=== PATIENT | male | born 1940 | race Caucasian/White ===

== ENCOUNTER 2020-04-27 08:18 | Emergency (ER) | payer OTHER, SELFPAY ==
[2020-04-27 08:30] VITALS: BP 146/80; PULSE 111; RESP 18; TEMP 37.6; O2SAT 94; BMI 34.9
--- NOTE | 2020-04-27 08:37 | XR_ITS ---
WS: [id number] Portable AP upright chest, 04/27/2020 Clinical Data: syncope Comparison: None. Findings: No nodules, masses or effusions are seen. The heart is normal. The pulmonary vascularity is not increased. No pneumonia or pneumothorax is seen. XR/XR chest 1V portable [id number] Impression: Negative chest.
--- NOTE | 2020-04-27 08:38 | CT_ITS ---
WS: [id number] CT HEAD TECHNIQUE: Noncontrast CT of the head obtained from the skullbase to the vertex. CLINICAL INFORMATION: fall with laceration, + use of ASA COMPARISON: None. DLP: 1683.[address] scans at [facility] use at least one of these dose optimization techniques: automat ed exposure control; mA and/or kV adjustment per patient size (includes targeted exams where dose is matched to clinical indication); or iterative reconstruction. FINDINGS: No evidence of intracranial hemorrhage or mass effect. Ventricular system and basal cisterns are ríos nt. Mild small vessel changes with mild parenchymal volume loss. No extra-axial fluid collections. No evidence of mass or mass effect. Normal gomez-white differentiation. Mild mucosal thickening paranasal sinuses. Mastoid air cells well aerated. CT/CT head wo con* [id number] IMPRESSION: 1. No evidence of intracranial hemorrhage or mass effect. 2. Mild small vessel changes. Mild parenchymal volume loss. 3. Mild mucosal thickening in the paranasal sinuses. Mastoid air cells are wel l aerated. 4. No acute intracranial findings.
--- NOTE | 2020-04-27 08:40 | ECG_ITS ---
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 Measurements Intervals [place] Rate: 100 P: -1 IA: 176 QRS: -58 QRSD: 146 T: 26 QT: 350 QTc: 452 Interpretive Statements SINUS TACHYCARDIA LEFT AXIS DEVIATION [QRS AXIS < -30] INTRAVENTRICULAR CONDUCTION DELAY [130+ ms QRS DURATION] No previous ECG available for comparison Electronically Signed On 04-27-2020 17:33:16 CDT by Ahsan Ragland M.D. [email or web address]/NU/[id number] f
--- NOTE | 2020-04-27 08:42 | W.ED.FALL ---
HPI - Fall General: Chief Complaint: Fall Stated Complaint: FALL, HEAD LACERATION Time Seen by Provider: 04/27/20 08:25 History of Present Illness: HPI Narrative: 79-year-old male presents to the emergency department with head injury status post syncope. He reports previous syncopal episodes x2 years with work-up by his primary care provider. Reports felt dizzy and fell upon awakening out of bed. He drove himself to the emergency department. He is also complaining of 3-day history of increased shortness of breath. He reports concern he may have, COVID . He denies exposure. Reports 2-day onset of increased temperature of 99.2-99.7. History of CAD, first [place] 1980. He denies chest pain. Reports did not take insulin or oral medications this morning. MD complaint: fall Onset (ago): hour(s) (1) Fall from: standing and from height (distance) Fall witnessed: no Place fall occurred: home Loss of consciousness: Yes Length of LOC: second(s) (Unknown, patient reports, not long ) Prolonged down time: unclear Symptoms prior to fall: lightheadedness and dizziness Location of injury: head Location of injury - extremities: Left: elbow and knee Associated symptoms-after fall: Denies abdominal pain, chest pain or headache(s) Review of Systems General: Reports: 10 or more systems reviewed and unremarkable except in HPI and below Const: Reports: fever(s); Denies: chills, change in appetite or diaphoresis Eyes: Denies: blurry vision or eye redness ENMT: Denies: throat pain, dental pain or disequilibrium Card: Denies: chest pain, palpitations or irregular heart rhythm Resp: Reports: dyspnea and wheezing; Denies: productive cough, non-productive cough, pain on inspiration, hemoptysis or chest congestion GI: Denies: abdominal pain, nausea or vomiting : Denies: dysuria Musc: Denies: back pain Skin/Breast: Denies: rash or pruritus Neuro: Denies: headache(s), weakness in extremities or behavioral changes Souleymane/Lymph: Denies: easy bruising Physical Exam Const: COMMON NORMALS: patient oriented x3, healthy appearing, alert and well nourished GENERAL APPEARANCE: cooperative, comfortable, well kempt and well hydrated ORIENTATION/CONSCIOUSNESS: Yes awake, Yes oriented to person, Yes oriented to place and Yes oriented to time HENMT: COMMON NORMALS: Normal external nose present and moist oral mucous membranes HEAD & SCALP: laceration (frontal 3 cm linear, vertical) FACE & SINUS: sinuses nontender and face symmetric NOSE: Normal external nose present GENERAL EAR: hearing grossly impaired Laterality: bilateral (use of hearing aids) MOUTH: Normal oral and palatal mucosa present Eye: COMMON NORMALS: Equal, round and reactive pupils present and EOMs intact bilaterally GENERAL EYE: appearance normal, both eyes and all related structures EYELID: eyelids normal PUPIL: Yes Equal, round and reactive pupils present, Yes pupil size - right Right pupil size (mm): 3 and Yes pupil size - left Left pupil size (mm): 3 Neck/C-Spine: COMMON NORMALS: full ROM and no lymphadenopathy GENERAL: Yes normal visual inspection, Yes trachea midline, No anterior neck swelling and No lymphadenopathy CERVICAL SPINE: Yes cervical ROM normal, Yes normal cervical lordosis, No cervical ROM abnormal, No pain with cervical ROM, No Cervical spine tenderness, No Paracervical muscle tenderness, No Paracervical spasm and No Trapezius muscle tenderness Lymph: LYMPHATIC: no lymphadenopathy noted Chest: COMMONS NORMALS: normal inspection of the chest and normal palpation of entire chest wall Resp: COMMON NORMALS: clear to auscultation bilaterally EFFORT & INSPECTION: Yes able to speak in complete sentences, Yes symmetric chest movement, Yes tachypneic, Yes labored (With ambulation/activity), No paradoxical thoraco-abdominal movements and No tracheal deviation AUSCULTATION: clear to auscultation bilaterally Cardio: COMMON NORMALS: regular rhythm, S1 normal heart sound present and S2 normal heart sound present RHYTHM: regular rhythm HEART SOUNDS: S1 normal heart sound present and S2 normal heart sound present GI: COMMON NORMALS: Soft to palpation and non-tender INSPECTION: Yes normal to inspection PALPATION: Yes Soft to palpation : COMMON NORMALS: Yes no CVA tenderness BLADDER/KIDNEY EXAM: Yes no CVA tenderness Back/Pelvis: COMMON NORMALS: no CVA tenderness and thoracic and lumbar spine normal to inspection Extremity: COMMON NORMALS: capillary refill normal GENERAL: Yes normal exam except as noted LEFT UPPER EXTREMITY: Yes elbow joint (Full range of motion noted without pain, scattered abrasions left lateral elbow) LEFT LOWER EXTREMITY: Yes knee joint (Fall range of motion noted upon exam, ambulatory without difficulty) Left knee: Yes inspection (Small abrasion, superficial left anterior knee) and Yes palpation (Nontender) Neuro: REGINA COMA SCALE: document GCS findings [place] coma scale eye opening: Spontaneous [place] coma scale verbal response: Orientated [place] coma scale motor response: Obey commands Regina coma scale total score: 15 COMMON NORMALS: patient oriented x3 and no focal motor deficits SENSORIUM/ORIENTATION: Yes alert, Yes oriented to person, Yes oriented to place and Yes oriented to time Psych: COMMON NORMALS: mental status grossly normal, Normal thought process present, cooperative and speech normal APPEARANCE: Yes grossly normal and Yes well kempt ATTITUDE: Yes calm ACTIVITY/MOTOR BEHAVIOR: Yes appropriate eye contact SPEECH: Yes normal speech THOUGHT PROCESS: Normal thought process present THOUGHT CONTENT: Yes Normal thought content present ATTENTION/CONCENTRATION: Yes attention grossly intact MEMORY/COGNITION: Yes memory grossly intact INSIGHT: Good insight present (Psych) JUDGEMENT: Good judgement present (Psych) Skin: COMMON NORMALS: no rashes or lesions noted and turgor normal GENERAL SKIN EXAM: no rashes or lesions noted and turgor normal Procedures Laceration Laceration 1: Site: scalp Side (If applicable): right Size (cm): 3.5 Description: linear and contaminated Depth: simple, single layer Local Anesthetic: lidocaine 1% and with epi Amount of anesthesia used (mL): 6 Pre-repair: wound explored, irrigated extensively, deep structures intact, extensive debridement and wound margins revised Skin layer closed with: nylon Size (cm): 5-0 Number of sutures: 6 Technique: simple, interrupted Course ED course: 79-year-old male patient presents to the emergency department due to fall/head injury/laceration secondary syncopal episode. He reports syncopal episodes x2 years with work-up by his primary care physician. Cardiac work-up in the ER did not reveal acute coronary event. CT of the head negative for intracranial abnormality/bleed. He is requesting to go home, does not wish to be tested for COVID, he reports breathing is the same as in the past and has not changed, [facility], agrees to return to the emergency department if he develops the worst headache of his life, increased shortness of breath, coughing up blood or increase syncopal episodes. Vital Signs: Vital signs: Vital Signs Temperature 99.7 F H 04/27/20 08:30 Pulse Rate 92 04/27/20 12:28 Respiratory Rate 20 H 04/27/20 12:28 Blood Pressure 138/99 04/27/20 12:28 Pulse Oximetry 93 04/27/20 12:28 MDM - Fall Lab Data: Labs: Lab Results 04/27/20 04/27/20 04/27/20 Range/Units 08:50 08:50 08:50 WBC 9.7 (4.0-10.0) 10^3/ uL RBC 5.02 (4.1-5.3) 10^6/u L Hgb 9.6 L (11.7-16.6) g/dL Hct 35.1 L (42.0-52.0) % MCV 69.9 L (80-94) fL MCH 19.1 L (28.0-34.0) pg MCHC 27.4 L (30.0-36.0) g/dL RDW 19.3 H (12.1-15.1) % Plt Count 206 (130-400) 10^3/c mm MPV 10.1 (7.4-10.4) fL Neut % (Auto) 71.5 % Lymph % (Auto) 13.8 % [place] % (Auto) 13.7 % Eos % (Auto) 0.5 % Baso % (Auto) 0.2 % Neut # (Auto) 6.95 (1.8-7.7) 10^3/u L Lymph # (Auto) 1.3 (0.8-4.8) 10^3/u L [place] # (Auto) 1.3 H (0.2-0.9) 10^3/u L Eos # (Auto) 0.1 (0.0-0.8) 10^3/u L Baso # (Auto) 0.0 (0.0-0.1) 10^3/u L Nucleated RBC % (a uto) 0 % Nucleated RBCs # 0.0 /100WBC PT 12.70 (12.1-14.9) SECO NDS INR 0.93 (0.8-1.2) APTT 25.9 (23.9-36.7) SECO NDS Fibrinogen 595 H (174-498) mg/dL D-Dimer 0.68 H (0-0.59) ug/mIFE U Sodium 131 L (136-145) mmol/L Potassium 4.6 (3.5-5.1) mmol/L Chloride 96 L (98-107) mmol/L Carbon Dioxide 23 (22-29) mmol/L Anion Gap 16.6 (5-19) BUN 28 H (8-23) mg/dL Creatinine 1.6 H (0.7-1.2) mg/dL GFR Calculation Not Reportable Glucose 424 H (65-115) mg/dL Calculated Osmolal ity 296 H (285-295) mOsm/k g Lactate (0.5-2.2) mmol/L Calcium 9.7 (8.5-10.5) mg/dL Total Bilirubin 0.3 (0.15-1.2) mg/dL AST 18 (0-40) U/L ALT 13 (0-41) U/L Alkaline Phosphata se 98 (40-130) IU/L Troponin T Baselin e (0-15) ng/L Troponin T 120 Min [place] (0-15) ng/L Delta Troponin T (0-10) ABS# NT-Pro-B Natriuret Pep 364 (0-450) pg/mL Total Protein 6.6 (6.6-8.7) g/dL Albumin 3.9 (3.5-5.2) g/dL Globulin 2.7 (1.3-4.6) g/dL Urine Color (Yellow) Urine Appearance (CLEAR) Urine pH (5-7) Ur Specific Gravit y (1.005-1.030) Urine Protein (Negative) Urine Glucose (UA) (Normal) Urine Ketones (Negative) Urine Blood (Negative) Urine Nitrate (Negative) Urine Bilirubin (Negative) Urine Urobilinogen (Negative) mg/dL Ur Leukocyte Laila ase (Negative) 04/27/20 04/27/20 04/27/20 Range/Units 08:50 08:50 10:12 WBC (4.0-10.0) 10^3/ uL RBC (4.1-5.3) 10^6/u L Hgb (11.7-16.6) g/dL Hct (42.0-52.0) % MCV (80-94) fL MCH (28.0-34.0) pg MCHC (30.0-36.0) g/dL RDW (12.1-15.1) % Plt Count (130-400) 10^3/c mm MPV (7.4-10.4) fL Neut % (Auto) % Lymph % (Auto) % [place] % (Auto) % Eos % (Auto) % Baso % (Auto) % Neut # (Auto) (1.8-7.7) 10^3/u L Lymph # (Auto) (0.8-4.8) 10^3/u L [place] # (Auto) (0.2-0.9) 10^3/u L Eos # (Auto) (0.0-0.8) 10^3/u L Baso # (Auto) (0.0-0.1) 10^3/u L Nucleated RBC % (a uto) % Nucleated RBCs # /100WBC PT (12.1-14.9) SECO NDS INR (0.8-1.2) APTT (23.9-36.7) SECO NDS Fibrinogen (174-498) mg/dL D-Dimer (0-0.59) ug/mIFE U Sodium (136-145) mmol/L Potassium (3.5-5.1) mmol/L Chloride (98-107) mmol/L Carbon Dioxide (22-29) mmol/L Anion Gap (5-19) BUN (8-23) mg/dL Creatinine (0.7-1.2) mg/dL GFR Calculation Glucose (65-115) mg/dL Calculated Osmolal ity (285-295) mOsm/k g Lactate 1.0 (0.5-2.2) mmol/L Calcium (8.5-10.5) mg/dL Total Bilirubin (0.15-1.2) mg/dL AST (0-40) U/L ALT (0-41) U/L Alkaline Phosphata se (40-130) IU/L Troponin T Baselin e 54 H (0-15) ng/L Troponin T 120 Min [place] (0-15) ng/L Delta Troponin T (0-10) ABS# NT-Pro-B Natriuret Pep (0-450) pg/mL Total Protein (6.6-8.7) g/dL Albumin (3.5-5.2) g/dL Globulin (1.3-4.6) g/dL Urine Color Straw (Yellow) Urine Appearance Clear (CLEAR) Urine pH 5 (5-7) Ur Specific Gravit y 1.010 (1.005-1.030) Urine Protein Neg (Negative) Urine Glucose (UA) 4+ H (Normal) Urine Ketones Negative (Negative) Urine Blood Neg (Negative) Urine Nitrate Negative (Negative) Urine Bilirubin Neg (Negative) Urine Urobilinogen Norm (Negative) mg/dL Ur Leukocyte Laila ase Negative (Negative) 04/27/20 Range/Units 11:00 WBC (4.0-10.0) 10^3/ uL RBC (4.1-5.3) 10^6/u L Hgb (11.7-16.6) g/dL Hct (42.0-52.0) % MCV (80-94) fL MCH (28.0-34.0) pg MCHC (30.0-36.0) g/dL RDW (12.1-15.1) % Plt Count (130-400) 10^3/c mm MPV (7.4-10.4) fL Neut % (Auto) % Lymph % (Auto) % [place] % (Auto) % Eos % (Auto) % Baso % (Auto) % Neut # (Auto) (1.8-7.7) 10^3/u L Lymph # (Auto) (0.8-4.8) 10^3/u L [place] # (Auto) (0.2-0.9) 10^3/u L Eos # (Auto) (0.0-0.8) 10^3/u L Baso # (Auto) (0.0-0.1) 10^3/u L Nucleated RBC % (a uto) % Nucleated RBCs # /100WBC PT (12.1-14.9) SECO NDS INR (0.8-1.2) APTT (23.9-36.7) SECO NDS Fibrinogen (174-498) mg/dL D-Dimer (0-0.59) ug/mIFE U Sodium (136-145) mmol/L Potassium (3.5-5.1) mmol/L Chloride (98-107) mmol/L Carbon Dioxide (22-29) mmol/L Anion Gap (5-19) BUN (8-23) mg/dL Creatinine (0.7-1.2) mg/dL GFR Calculation Glucose (65-115) mg/dL Calculated Osmolal ity (285-295) mOsm/k g Lactate (0.5-2.2) mmol/L Calcium (8.5-10.5) mg/dL Total Bilirubin (0.15-1.2) mg/dL AST (0-40) U/L ALT (0-41) U/L Alkaline Phosphata se (40-130) IU/L Troponin T Baselin e (0-15) ng/L Troponin T 120 Min [place] 57.81 H (0-15) ng/L Delta Troponin T 3.81 (0-10) ABS# NT-Pro-B Natriuret Pep (0-450) pg/mL Total Protein (6.6-8.7) g/dL Albumin (3.5-5.2) g/dL Globulin (1.3-4.6) g/dL Urine Color (Yellow) Urine Appearance (CLEAR) Urine pH (5-7) Ur Specific Gravit y (1.005-1.030) Urine Protein (Negative) Urine Glucose (UA) (Normal) Urine Ketones (Negative) Urine Blood (Negative) Urine Nitrate (Negative) Urine Bilirubin (Negative) Urine Urobilinogen (Negative) mg/dL Ur Leukocyte Laila ase (Negative) Imaging Data^: CT Head: Radiologist's impression: [place] [address] CT Scan Report Signed Patient: James Torres #: [id number] : 2Acct#:[id number] Age/Sex: 79 / MADM Date: 04/27/20 Loc: ERRoom/Bed: Attending Dr: Ordering Provider/Ordering MD: Tashia Bourne Date of Service: 04/27/20 Procedure(s): CT head wo con* [id number] Accession Number(s): [id number] Report Number: [id number] WS: [id number] CT HEAD TECHNIQUE: Noncontrast CT of the head obtained from the skullbase to the vertex. CLINICAL INFORMATION: fall with laceration, + use of ASA COMPARISON: None. DLP: 1683.[address] scans at [facility] use at least one of these dose optimization techniques: automated exposure control; mA and/or kV adjustment per patient size (includes targeted exams where dose is matched to clinical indication); or iterative reconstruction. FINDINGS: No evidence of intracranial hemorrhage or mass effect. Ventricular system and basal cisterns are patent. Mild small vessel changes with mild parenchymal volume loss. No extra-axial fluid collections. No evidence of mass or mass effect. Normal gomez-white differentiation. Mild mucosal thickening paranasal sinuses. Mastoid air cells well aerated. CT/CT head wo con* [id number] IMPRESSION: 1. No evidence of intracranial hemorrhage or mass effect. 2. Mild small vessel changes. Mild parenchymal volume loss. 3. Mild mucosal thickening in the paranasal sinuses. Mastoid air cells are well aerated. 4. No acute intracranial findings. Dictated By:Gus Apple MD Signed By:Gus Apple MDSigned Date/Time:04/27/20 1005 DD/ 0951 EKG Data^: EKG 1: EKG interpretation date: 04/27/20 EKG interpretation time: 09:24 Prior EKG tracings: not available for review Computer generated interpretation: Sinus tachycardia, left axis deviation, abnormal ECG EKG 2: EKG interpretation date: 04/27/20 EKG interpretation time: 10:48 Prior EKG tracings: available for review Computer generated interpretation: Sinus rhythm, left axis deviation, right bundle branch block, anteroseptal myocardial infarction age indeterminate, abnormal ECG Discharge Plan Discharge Patient Disposition: Home Clinical Impression: Fall against object Syncope Qualifiers: Syncope type: unspecified Qualified Code(s): R55 - Syncope and collapse Laceration of scalp Qualifiers: Encounter type: initial encounter Qualified Code(s): S01.01XA - Laceration without foreign body of scalp, initial encounter Contusion of elbow Qualifiers: Encounter type: initial encounter Laterality: left Qualified Code(s): S50.02XA - Contusion of left elbow, initial encounter Condition: Stable Prescriptions: No Action carvedilol 6.25 mg Tablet 6.25 mg PO BID RF: 0 Lantus U-100 Insulin 100 unit/mL Solution 65 unit SUBCUT BID RF: 0 Miralax 17 gram Powder In Packet 17 g PO DAILY RF: 0 terazosin 1 mg Capsule 3 mg PO BEDTIME RF: 0 Flomax 0.4 mg Capsule 0.8 mg PO DAILY RF: 0 meclizine 25 mg Tablet 25 mg PO BID PRN (Reason: Dizziness) RF: 0 omeprazole 20 mg Capsule,Delayed Release(Dr/Ec) 40 mg PO DAILY RF: 0 aspirin 81 mg Tablet,Chewable 81 mg PO DAILY RF: 0 Lasix 20 mg Tablet 20 mg PO DAILY RF: 0 Vitamin D3 25 mcg (1,000 unit) Capsule 25 mcg PO DAILY RF: 0 Crestor 10 mg Tablet 10 mg PO DAILY RF: 0 tiotropium-olodaterol 2.5-2.5 mcg/actuation Mist 2 puff INHALATION Q24H RF: 0 Discharge Orders: Discharge Order (Routine); Ordered 04/27/20 Ordered By: Tashia Bourne Referrals: Jesse Fang [Primary Care Provider] - Discharge Diet: Usual diet Discharge Activity: Resume usual activity Patient Instructions: Scalp Laceration, Syncope (ED), Scalp Contusion in Adults (ED) Activity Restrictions/Additional Instructions: Follow-up with Dr. Delgado at the [facility] Recommend COVID-19 testing Return to the emergency department if you develop increased shortness of breath, difficulty catching your breath, fever greater than 102, nausea vomiting Take it easy over the next several days, cool compresses to your head to help reduce swelling, keep the head of your bed elevated to help with swelling, may take Tylenol for pain If you develop the worst headache of your life or vomiting, you will need to return to the emergency department immediately Sutures will need to be removed in 7 days Discharge Date/Time: 04/27/20 12:28 Coding Level of Care Code ED Deckhand for Azamg Fwd Exam Comprehensive
[2020-04-27 09:03] LABS: Basophils % 0.2 %; Eosinophils # 0.1 10^3/uL (0.0-0.8); Eosinophils % 0.5 %; Hematocrit 35.1 % (42.0-52.0); Hemoglobin 9.6 g/dL (11.7-16.6); Lymphocytes # 1.3 10^3/uL (0.8-4.8); Lymphocytes % 13.8 %; Mean Corpuscular HGB Conc 27.4 g/dL (30.0-36.0); Mean Corpuscular Hemoglobin 19.1 pg (28.0-34.0); Mean Corpuscular Volume 69.9 fL (80-94); Mean Platelet Volume 10.1 fL (7.4-10.4); Monocytes # 1.3 10^3/uL (0.2-0.9); Monocytes % 13.7 %; Neutrophils # 6.95 10^3/uL (1.8-7.7); Neutrophils % 71.5 %; Nucleated Red Blood Cells % 0 %; Platelet Count 206 10^3/cmm (130-400); Red Blood Count 5.02 10^6/uL (4.1-5.3); Red Cell Distribution Width 19.3 % (12.1-15.1); White Blood Count 9.7 10^3/uL (4.0-10.0)
[2020-04-27 09:15] LABS: INR 0.93 (0.8-1.2)
[2020-04-27 09:16] LABS: Fibrinogen 595 mg/dL (174-498); Partial Thromboplastin Time 25.9 SECONDS (23.9-36.7)
[2020-04-27 09:19] LABS: D Dimer 0.68 ug/mIFEU (0-0.59)
[2020-04-27 09:22] LABS: Troponin(5th) Baseline 54 ng/L (0-15)
[2020-04-27 09:31] LABS: Alanine Aminotransferase 13 U/L (0-41); Albumin Level 3.9 g/dL (3.5-5.2); Alkaline Phosphatase 98 IU/L (40-130); Anion Gap 16.6 (5-19); Aspartate Amino Transferase 18 U/L (0-40); Blood Urea Nitrogen 28 mg/dL (8-23); Calcium 9.7 mg/dL (8.5-10.5); Carbon Dioxide 23 mmol/L (22-29); Chloride 96 mmol/L (98-107); Globulin 2.7 g/dL (1.3-4.6); Glucose 424 mg/dL (65-115); NT Pro B Type Natriuretic Pept 364 pg/mL (0-450); Osmolality Calculated 296 mOsm/kg (285-295); Potassium 4.6 mmol/L (3.5-5.1); Sodium 131 mmol/L (136-145); Total Bilirubin 0.3 mg/dL (0.15-1.2); Total Protein 6.6 g/dL (6.6-8.7)
[2020-04-27] MEDS: tetanus-dipt-pertussis 0.5 mL SDV IM (10:07)
[2020-04-27 10:22] LABS: Add Urine Microscopic? NO
[2020-04-27 10:31] LABS: Glucose Urine UA 4+ (Normal); Protein Urine Neg (Negative); Urine Appearance Clear (CLEAR); Urine Color Straw (Yellow); pH Urine 5 (5-7)
[2020-04-27 10:32] LABS: Bilirubin Urine Neg (Negative); Blood Urine Neg (Negative); Ketones Urine Negative (Negative); Leukocyte Esterase Urine Negative (Negative); Nitrate Urine Negative (Negative); Urobilinogen Urine Norm (Negative)
--- NOTE | 2020-04-27 10:40 | ECG_ITS ---
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 Measurements Intervals [place] Rate: 94 P: 68 MD: 188 QRS: -58 QRSD: 138 T: 53 QT: 346 QTc: 434 Interpretive Statements SINUS RHYTHM LEFT AXIS DEVIATION [QRS AXIS < -30] RIGHT BUNDLE BRANCH BLOCK [120+ ms QRS DURATION, UPRIGHT V1, 40+ ms S IN I/aVL/V4/V5/V6] ANTEROSEPTAL MYOCARDIAL INFARCTION , OF INDETERMINATE AGE [40+ ms Q WAVE IN V1-V4] Compared to ECG 04/27/2020 09:24:47 Right bundle-branch block now present Myocardial infarct finding now present Sinus tachycardia no longer present Intraventricular conduction delay no longer present Electronically Signed On 04-27-2020 17:46:36 CDT by Ahsan Ragland M.D. [id number] mirna
[2020-04-27 11:44] LABS: Troponin 5 2HR 57.81 ng/L (0-15); Troponin 5 2HR Delta 3.81 ABS# (0-10)
[2020-04-27 11:52] VITALS: BP 128/74; BP 138/69; BP 150/77
[2020-04-27 12:28] VITALS: BP 138/99; PULSE 92; RESP 20; O2SAT 93
--- NOTE | 2020-04-28 09:47 | DCPLANNER ---
manager collection had message to schedule a follow up appointment for patient [facility] manager collection [facility] and told her that [facility] needed [facility]. manager collection was told that a consult would be placed and that the clinic will call patient with the appointment information. Julio arroyo [facility] over a secure email.
== END 2020-04-27 12:28 | disposition home or self-care (01) ==
PROVIDERS: Emergency Provider Nurse Practitioner Family; Family Provider Internal Medicine; PCP Internal Medicine
DX: R55 Syncope and collapse (principal); S01.01XA Laceration without foreign body of scalp, initial encounter; S50.02XA Contusion of left elbow, initial encounter; Z79.4 Long term (current) use of insulin; Z79.82 Long term (current) use of aspirin; W19.XXXA Unspecified fall, initial encounter; Z23 Encounter for immunization
CPT/HCPCS: 12002; 12345; 36415; 70450; 71045; 80053; 81003; 83605; 83880; 84484; 85025; 85378; 85384; 85610; 85730; 90715; 93005; 99283; 99284